=== PATIENT | female | born 1970 | race African-American/Black ===

== ENCOUNTER 2024-01-15 17:05 | Inpatient (IN) | payer OTHER, MEDICAID ==
[~2024-01-15] VITALS: Ht 149.9 cm; Wt 64.9 kg
[2024-01-15 17:06] VITALS: O2SAT 100
[2024-01-15] MEDS: MORPHINE SULFATE 4 MG/ML INJ (FOR IV/IM USE) IV STA (18:15)
[2024-01-15] MEDS: ONDANSETRON HCL 4MG/2ML INJ IV STA (18:16)
[2024-01-15] MEDS: PANTOPRAZOLE SODIUM 40 MG/VIAL IV STA (18:16)
[2024-01-15] MEDS: SODIUM CHLORIDE 0.9% 1,000 ML IV ONE (18:16)
[2024-01-15 19:04] LABS: BASOPHILS % 0.3 % (0.0-2.0); EOSINOPHILS % 0.1 % (0.0-5.0); HEMATOCRIT. 28.8 % (36.0-48.0); HEMOGLOBIN. 9.5 g/dL (12.0-16.0); LYMPHOCYTES % 19.7 % (20.0-50.0); MEAN CORPUSCULAR HEMOGLOBIN 26.1 pg (28.0-32.0); MEAN CORPUSCULAR HGB CONC 33.2 g/dL (31.0-37.0); MEAN CORPUSCULAR VOLUME 78.6 fL (81.0-99.0); MEAN PLATELET VOLUME 4.8 fl (7.4-10.4); MONOCYTES % 11.6 % (2.0-8.0); NEUTROPHILS % 68.3 % (40.0-76.0); RED BLOOD CELL COUNT 3.66 mill/uL (4.2-5.4); RED CELL DISTRIBUTION WIDTH 19.5 % (11.6-14.6); WHITE BLOOD COUNT 9.4 x1000/uL (4.5-11.0)
[2024-01-15 19:08] LABS: CHLORIDE 104 mEq/L (98-107); SODIUM 139 mEq/L (136-145)
[2024-01-15 19:09] LABS: CARBON DIOXIDE 26 mEq/L (21-32)
[2024-01-15 19:10] LABS: CALCIUM 9.3 mg/dL (8.7-10.4); DIFFERENTIAL COMMENT 1
[2024-01-15 19:14] LABS: CREATININE 0.7 mg/dL (0.6-1.0); GLUCOSE 123 mg/dL (70-105); PROTHROMBIN TIME 11.2 sec (9.6-11.0)
[2024-01-15 19:15] LABS: UREA NITROGEN BLOOD 22 mg/dL (9-23)
[2024-01-15 19:16] LABS: ALANINE AMINOTRANSFERASE 10 IU/L (10-49); ALBUMIN 3.3 g/dL (3.2-4.8); ASPARTATE AMINOTRANSFERASE 24 IU/L (<34)
[2024-01-15 19:17] LABS: BILIRUBIN DIRECT 0.4 mg/dL (<=3.0); BILIRUBIN TOTAL 1.4 mg/dL (0.1-1.0); PROTEIN TOTAL 7.2 g/dL (6.0-8.3)
[2024-01-15 19:23] LABS: TROPONIN I HIGH SENSITIVITY 65 ng/L (3.0-34)
[2024-01-15] MEDS: POTASSIUM CHLORIDE 20MEQ TABLET SR PO NR (20:22)
[2024-01-15] MEDS: LORAZEPAM 2MG/ML INJ IV NR (21:15)
[2024-01-15] MEDS: ACETAMINOPHEN 1000MG/100ML 100 ML IV NR (21:15)
[2024-01-15] MEDS: CEFTRIAXONE 1GM/50ML 50 ML IV NR (21:44)
[2024-01-15] MEDS: KCL 20MEQ/100ML PREMIX 100 ML IV SCH (21:44)
[2024-01-15] MEDS: IOHEXOL-350 100 ML BOTTLE ONE (22:34)
[2024-01-15] MEDS: METRONIDAZOLE 500 MG PREMIX 100 ML IV NR (22:35)
[2024-01-15] MEDS ORDERED: CLONIDINE 0.1MG TABLET PO PRN (23:15)
[2024-01-16] VITALS (8 sets, daily range): BP systolic 135–171; BP diastolic 72–98; PULSE 90–111; RESP 18–20; TEMP 97–98.1
[2024-01-16] MEDS ORDERED: ONDANSETRON HCL 4MG/2ML INJ IV PRN (01:45)
[2024-01-16] MEDS ORDERED: ACETAMINOPHEN 650MG SUPP PR PRN (01:45)
[2024-01-16] MEDS ORDERED: GUAIFENESIN 200MG/10ML SUGAR FREE UDC PO PRN (01:45)
[2024-01-16] MEDS ORDERED: IPRATROPIUM/ALBUTEROL 0.5-3(2.5)MG/3ML NEB HHN PRN (01:45)
[2024-01-16] MEDS: KETOROLAC 15MG/ML VIAL IV PRN (02:14)
[2024-01-16] MEDS: PANTOPRAZOLE SODIUM 40 MG/VIAL IV SCH (02:22)
[2024-01-16] MEDS: DEXT 5%/0.45% NACL 1000ML 1,000 ML IV SCH (02:22)
[2024-01-16 02:50] LABS: TROPONIN I HIGH SENSITIVITY 83 ng/L (3.0-34)
[2024-01-16] MEDS: METRONIDAZOLE 500 MG PREMIX 100 ML IV SCH (06:03)
[2024-01-16 07:07] LABS: CREATINE KINASE MB FRACTION 0.8 ng/mL (0.5-3.6)
[2024-01-16 07:20] LABS: HEMATOCRIT 22.4 % (36.0-48.0); HEMOGLOBIN 7.4 g/dL (12.0-16.0); MEAN CORPUSCULAR HEMOGLOBIN 25.8 pg (28.0-32.0); MEAN CORPUSCULAR HGB CONC 32.9 g/dL (31.0-37.0); MEAN CORPUSCULAR VOLUME 78.2 fL (81.0-99.0); RED BLOOD CELL COUNT 2.86 mill/uL (4.2-5.4); RED CELL DISTRIBUTION WIDTH 18.6 % (11.6-14.6); WHITE BLOOD COUNT 7.4 x1000/uL (4.5-11.0)
[2024-01-16 07:27] LABS: FOLIC ACID (FOLATE) SERUM 15.91 ng/mL (>5.38)
[2024-01-16 07:28] LABS: VITAMIN B12 SERUM 394 pg/mL (211-911)
[2024-01-16 07:49] LABS: PLATELET 10 x1000/uL (130-400)
[2024-01-16 09:51] LABS: IRON 84 ug/dL (50-170)
[2024-01-16 09:54] LABS: TOTAL IRON BINDING CAPACITY 204 ug/dl (250-425)
[2024-01-16] MEDS: CEFTRIAXONE 1GM/50ML 50 ML IV SCH (10:23)
[2024-01-16 12:30] LABS: CREATINE KINASE MB FRACTION 0.7 ng/mL (0.5-3.6)
[2024-01-16] MEDS: HYDRALAZINE 20MG/ML VIAL IV PRN (12:37)
[2024-01-16 12:41] LABS: PLATELET 11 x1000/uL (130-400)
[2024-01-16 15:18] LABS: *AMPHETAMINES SCREEN URINE NEGATIVE (NEGATIVE); *BARBITURATES SCREEN URINE NEGATIVE (NEGATIVE); *BENZODIAZEPINES SCREEN URINE NEGATIVE (NEGATIVE); *COCAINE SCREEN URINE NEGATIVE (NEGATIVE); CANNABINOID URINE SCREEN PRESUMPTIVE POSITIVE (NEGATIVE); METHADONE URINE SCREEN NEGATIVE (NEGATIVE); OPIATES URINE SCREEN PRESUMPTIVE POSITIVE (NEGATIVE); PHENCYCLIDINE URINE SCREEN NEGATIVE (NEGATIVE)
[2024-01-16 15:19] LABS: ECSTASY MDMA SCREEN URINE NEGATIVE (NEGATIVE)
[2024-01-16] MEDS ORDERED: DIATR MEGLU/DIATRIZOATE SOLN 120ML ONE (15:44)
[2024-01-16 20:35] LABS: CREATINE KINASE MB FRACTION < 0.5 ng/mL (0.5-3.6)
[2024-01-16 20:36] LABS: CREATINE KINASE 26 IU/L (34-145)
[2024-01-16 20:38] LABS: TROPONIN I HIGH SENSITIVITY 71 ng/L (3.0-34)
[2024-01-17] VITALS: BP 127/69; PULSE 93; RESP 20; TEMP 97.2
[2024-01-17] MEDS ORDERED: METRONIDAZOLE 500MG TABLET PO SCH (06:00)
== END 2024-01-17 01:37 | disposition short-term general hospital (02) | DRG 390 ==
LOC: ER 17:05 → 7EST 20:54 → EDBEDREQTM 21:03 → EDBEDREQ 21:03
PROVIDERS: ADMIT Internal Medicine; ATTEND Internal Medicine
PROC: 30233R1 Transfusion of Nonautologous Platelets into Peripheral Vein, Percutaneous Approach (ICD-10-PCS; principal; 2024-01-16)
DX: K56.600 Partial intestinal obstruction, unspecified as to cause (principal); D50.9 Iron deficiency anemia, unspecified; E78.5 Hyperlipidemia, unspecified; E87.6 Hypokalemia; K52.9 Noninfective gastroenteritis and colitis, unspecified; I10 Essential (primary) hypertension; Z98.1 Arthrodesis status
CPT/HCPCS: 36415; 71045; 74018; 74174; 74250; 80048; 80076; 80305; 82550; 82553; 82607; 82746; 83540; 83550; 83605; 84484; 85025; 85027; 86850; 86900; 93005; 93970; 97166; 99291; 99292; C9113; J0360; J0696; J1885; J2060; J2270; J2405; J3480; J3490; J7030; P9034; Q9963; Q9967; J0131